=== PATIENT | male | born 1955 | race Caucasian/White ===

== ENCOUNTER 2017-03-20 02:12 | Inpatient (IN) | payer OTHER ==
[~2017-03-20] VITALS: Ht 167.6 cm; Wt 119.7 kg
[2017-03-20] VITALS (14 sets, daily range): BP systolic 107–172; BP diastolic 48–83
[~2017-03-20 02:12] MED LIST: ALBU8.5H IH; ASPI-1093 PO; ATOR40TA28 PO; AUD NEB; BECL8.7A5 IH; CARV6 PO; CLOP75 PO; DOXY100C PO; FLUT16H NASAL; FURO40 PO; INS7030 SQ; IPRA3AMP4 NEB; IPRNEB IH; LISI-662 PO; MOME13HF IH; POTA20TA82 PO
[2017-03-20] MEDS ORDERED: TICA90TA PO (02:16)
[2017-03-20] MEDS ORDERED: MOME13HF2 IH (02:16)
[2017-03-20 02:22] LABS: GLUCOSE,POINT OF CARE 296 MG/DL (70-110)
[2017-03-20 02:44] LABS: EOSINOPHILS % (AUTO) 3.3 % (1.0-6.0); HEMOGLOBIN 14.7 g/dL (13.5-17.5); LYMPHOCYTES # (AUTO) 2.3 K/uL (1.0-4.8); LYMPHOCYTES % (AUTO) 25.1 % (22.0-44.0); MEAN CORPUSCULAR HEMOGLOBIN 30.6 pg (26.0-34.0); MEAN CORPUSCULAR HGB CONC 32.7 G/dL (31.0-37.0); MEAN CORPUSCULAR VOLUME 94 fL (80-100); MONOCYTES # (AUTO) 0.7 K/uL (0.1-1.0); MONOCYTES % (AUTO) 7.3 % (2.0-9.0); NEUTROPHILS # (AUTO) 5.9 K/uL (1.8-7.7); NEUTROPHILS % (AUTO) 64.3 % (40.0-70.0); PLATELET COUNT (AUTO) 199 K/uL (150-450); RED CELL DISTRIBUTION WIDTH 13.3 % (11.5-14.5); WHITE BLOOD COUNT (AUTO) 9.2 K/uL (4.5-11.0)
[2017-03-20] MEDS ORDERED: ONDANSETRON HCL 4 MG/2 ML VIAL IVP ONE (02:45)
[2017-03-20] MEDS ORDERED: FUROSEMIDE 40 MG/4 ML VIAL IVP ONE (02:45)
[2017-03-20] MEDS ORDERED: MORPHINE SULFATE 2 MG/ML SYRINGE IVP ONE (02:45)
[2017-03-20 02:54] LABS: CALCIUM, TOTAL 9.2 mg/dL (8.8-10.5); CREATININE 1.37 mg/dL (0.60-1.30); POTASSIUM 4.3 mmol/L (3.5-5.1)
[2017-03-20 02:59] LABS: BILIRUBIN,TOTAL 0.5 mg/dL (0.1-1.0); TOTAL PROTEIN, SERUM 6.6 g/dL (6.4-8.2)
[2017-03-20] MEDS ORDERED: NITROGLYCERIN 50 MG/D5% WATER 250 ML IV PRN (03:15)
[2017-03-20] MEDS ORDERED: 0.9% SODIUM CHLORIDE 10 ML SYRINGE IVP PRN (03:15)
[2017-03-20] MEDS ORDERED: ONDANSETRON HCL 4 MG/2 ML VIAL IVP PRN ×2 (03:15→03:30)
[2017-03-20] MEDS ORDERED: ACETAMINOPHEN 325 MG TABLET PO PRN ×2 (03:15→03:30)
[2017-03-20] MEDS ORDERED: HEPARIN SODIUM 25000 UNITS/D5W 250 ML IV ONE (03:15)
[2017-03-20] MEDS ORDERED: HEPARIN SODIUM 25000 UNITS/D5W 250 ML IV PRN (03:17)
[2017-03-20] MEDS ORDERED: IPRATROPIUM BROMIDE 0.5 MG/2.5 ML NEB SOLUTION NEB PRN (03:30)
[2017-03-20] MEDS ORDERED: ZOLPIDEM TARTRATE 5 MG TABLET PO PRN (03:30)
[2017-03-20] MEDS ORDERED: MAGNESIUM SULFATE 4 GM/WATER 100 ML IV PRN (03:30)
[2017-03-20] MEDS ORDERED: MAGNESIUM OXIDE 400 MG TABLET PO PRN (03:30)
[2017-03-20] MEDS ORDERED: POTASSIUM CHLORIDE 20 MEQ ER TABLET PO PRN ×2 (03:30)
[2017-03-20] MEDS ORDERED: BISACODYL 10 MG RECTAL RECTAL SUPPOSITORY PR PRN (03:30)
[2017-03-20] MEDS ORDERED: HEPARIN SODIUM,PORCINE 5,000 UNITS/ML VIAL IVP PRN ×2 (03:30)
[2017-03-20] MEDS ORDERED: MAGNESIUM SULFATE 2 GM in DEXTROSE 5%-WATER 50 ML IV PRN (03:30)
[2017-03-20] MEDS ORDERED: OxyCODONE HCL/ACETAMINOPHEN 5-325 MG TABLET PO PRN (03:30)
[2017-03-20] MEDS ORDERED: HEPARIN SODIUM,PORCINE 5,000 UNITS/ML VIAL IVP ONE ×3 (03:30→13:15)
[2017-03-20] MEDS ORDERED: POTASSIUM CHL 10 MEQ/WATER 50 ML IV PRN (03:30)
[2017-03-20] MEDS ORDERED: ALBUTEROL SULFATE 2.5 MG/0.5 ML NEB SOLUTION NEB PRN (03:30)
[2017-03-20] MEDS ORDERED: MAGNESIUM HYDROXIDE SUSPENSION 30 ML UDCUP PO PRN (03:30)
[2017-03-20] MEDS ORDERED: HEPARIN SODIUM 25000 UNITS/D5W 250 ML IV SCH (03:45)
[2017-03-20 03:52] LABS: PROTHROMBIN TIME 10.9 SEC (9.4-11.6)
[2017-03-20 04:05] LABS: CREATINE KINASE MB 14.2 ng/mL (0-5)
[2017-03-20] MEDS ORDERED: SODIUM CHLORIDE 0.9% 250 ML IV ONE (04:10)
[2017-03-20 04:57] LABS: GLUCOSE,POINT OF CARE 280 MG/DL (70-110)
[2017-03-20] MEDS ORDERED: DEXTROSE 50%-WATER 25 GM/50 ML SYRINGE IVP PRN ×2 (05:00→16:45)
[2017-03-20] MEDS: NITROGLYCERIN 2% (1 GM=INCH) PACKET TP SCH ×3 (05:17→17:43)
[2017-03-20] MEDS: INSULIN ASPART 100 UNITS/ML SQ PRN ×3 (05:40→21:29)
[2017-03-20 08:17] LABS: GLUCOSE,POINT OF CARE 211 MG/DL (70-110)
[2017-03-20] MEDS: INSULIN HUMAN NPH-REGULAR 70/30 100 UNITS/ML SQ SCH ×2 (08:18→21:29)
[2017-03-20] MEDS ORDERED: PANTOPRAZOLE SODIUM 40 MG/VIAL IVP SCH (09:00)
[2017-03-20] MEDS: CARVEDILOL 6.25 MG TABLET PO SCH ×2 (09:15→21:27)
[2017-03-20] MEDS: BECLOMETHASONE DIPR 80 MCG/PUFF 8.7 GM INHALER IH SCH ×2 (09:15→21:58)
[2017-03-20] MEDS: LISINOPRIL 20 MG TABLET PO SCH (09:16)
[2017-03-20] MEDS: ATORVASTATIN CALCIUM 40 MG TABLET PO SCH (10:30)
[2017-03-20] MEDS ORDERED: FUROSEMIDE 40 MG TABLET PO SCH (11:00)
[2017-03-20] MEDS ORDERED: SODIUM BICARBONATE 150 MEQ in DEXTROSE 5%-WATER 850 ML IV ONE (11:00)
[2017-03-20] MEDS ORDERED: SODIUM BICARBONATE 50 MEQ/50 ML VIAL ONE (11:59)
[2017-03-20] MEDS ORDERED: LIDOCAINE HCL/PF 1% 30 ML VIAL ONE (11:59)
[2017-03-20] MEDS ORDERED: IOHEXOL 300 MG/ML 150 ML VIAL ONE (11:59)
[2017-03-20] MEDS ORDERED: HEPARIN SODIUM 1000 UNITS/NS 1,000 ML ONE (11:59)
[2017-03-20 12:15] LABS: INR 1.1 (0.9-1.1); PROTHROMBIN TIME 11.2 SEC (9.4-11.6)
[2017-03-20] MEDS ORDERED: IOHEXOL 300 MG/ML 50 ML VIAL ONE (12:33)
[2017-03-20] MEDS ORDERED: FentaNYL CITRATE-PF 100 MCG/2 ML VIAL ONE (12:33)
[2017-03-20] MEDS ORDERED: NITROGLYCERIN 50 MG/D5% WATER 250 ML ONE (12:33)
[2017-03-20] MEDS ORDERED: MIDAZOLAM HCL 2 MG/2 ML VIAL ONE (12:33)
[2017-03-20] MEDS ORDERED: VERAPAMIL HCL 2.5 MG/ML 2 ML VIAL ONE (12:33)
[2017-03-20] MEDS ORDERED: HEPARIN SODIUM 1000 UNITS/NS 1,000 ML IARTER ONE (12:41)
[2017-03-20] MEDS ORDERED: IOHEXOL 300 MG/ML 150 ML VIAL IARTER ONE (12:45)
[2017-03-20] MEDS ORDERED: LIDOCAINE 1% 30 ML/SOD BICARB 8.4% 4 ML SQ ONE (12:45)
[2017-03-20] MEDS ORDERED: IOHEXOL 300 MG/ML 100 ML VIAL ONE (12:58)
[2017-03-20] MEDS ORDERED: NITROGLYCERIN/D5W 50 MG/250 ML IV BOTTLE ICOR ONE (13:15)
[2017-03-20] MEDS ORDERED: IOHEXOL 300 MG/ML 50 ML VIAL IARTER ONE (13:15)
[2017-03-20] MEDS ORDERED: IOHEXOL 300 MG/ML 100 ML VIAL IARTER ONE (13:15)
[2017-03-20] MEDS ORDERED: VERAPAMIL HCL 2.5 MG/ML 2 ML VIAL ICOR ONE (13:15)
[2017-03-20] MEDS ORDERED: TICAGRELOR 90 MG TABLET ONE (13:22)
[2017-03-20] MEDS ORDERED: ASPIRIN 81 MG CHEWABLE TABLET ONE (13:22)
[2017-03-20] MEDS ORDERED: TICAGRELOR 90 MG TABLET PO ONE (14:00)
[2017-03-20] MEDS ORDERED: ASPIRIN 81 MG CHEWABLE TABLET PO ONE (14:00)
[2017-03-20] MEDS ORDERED: INSULIN ASPART 100 UNITS/ML SQ PRN (16:45)
[2017-03-20] MEDS: OMEPRAZOLE 20 MG CAPSULE PO SCH (18:38)
[2017-03-20] MEDS ORDERED: TICAGRELOR 90 MG TABLET PO SCH ×2 (21:00)
[2017-03-21] VITALS (11 sets, daily range): BP systolic 105–161; BP diastolic 52–82
[2017-03-21] MEDS: NITROGLYCERIN 2% (1 GM=INCH) PACKET TP SCH ×5 (00:30→23:54)
[2017-03-21 05:14] LABS: BASOPHILS # (AUTO) 0.02 K/uL (0.00-0.20); BASOPHILS % (AUTO) 0.2 % (0.0-2.0); EOSINOPHILS # (AUTO) 0.33 K/uL (0.00-0.70); EOSINOPHILS % (AUTO) 3.12 % (1.0-6.0); HEMATOCRIT 38.8 % (41-53); HEMOGLOBIN 12.8 g/dL (13.5-17.5); LYMPHOCYTES # (AUTO) 2.2 K/uL (1.0-4.8); LYMPHOCYTES % (AUTO) 20.6 % (22.0-44.0); MEAN CORPUSCULAR HEMOGLOBIN 31.3 pg (26.0-34.0); MEAN CORPUSCULAR VOLUME 95 fL (80-100); MONOCYTES # (AUTO) 0.9 K/uL (0.1-1.0); MONOCYTES % (AUTO) 8.5 % (2.0-9.0); NEUTROPHILS # (AUTO) 7.1 K/uL (1.8-7.7); NEUTROPHILS % (AUTO) 67.5 % (40.0-70.0); PLATELET COUNT (AUTO) 194 K/uL (150-450); RED CELL DISTRIBUTION WIDTH 13.2 % (11.5-14.5); WHITE BLOOD COUNT (AUTO) 10.5 K/uL (4.5-11.0)
[2017-03-21 05:48] LABS: ALBUMIN 2.6 g/dL (3.4-5.0); BILIRUBIN,TOTAL 0.8 mg/dL (0.1-1.0); CALCIUM, TOTAL 8.6 mg/dL (8.8-10.5); CREATINE KINASE MB 9.6 ng/mL (0-5); CREATININE 1.32 mg/dL (0.60-1.30); MAGNESIUM 1.7 mg/dL (1.80-2.40); POTASSIUM 3.8 mmol/L (3.5-5.1); TOTAL PROTEIN, SERUM 5.7 g/dL (6.4-8.2)
[2017-03-21] MEDS ORDERED: PRASUGREL HCL 10 MG TABLET PO SCH (09:00)
[2017-03-21] MEDS: LISINOPRIL 20 MG TABLET PO SCH (09:27)
[2017-03-21 09:28] LABS: GLUCOSE COMMENT 1 Received Meds; GLUCOSE,POINT OF CARE 199 MG/DL (70-110)
[2017-03-21 09:28] LABS: GLUCOSE,POINT OF CARE 96 MG/DL (70-110)
[2017-03-21 09:28] LABS: GLUCOSE,POINT OF CARE 114 MG/DL (70-110)
[2017-03-21 09:28] LABS: GLUCOSE,POINT OF CARE 149 MG/DL (70-110)
[2017-03-21] MEDS: ASPIRIN 81 MG EC TABLET PO SCH (09:32)
[2017-03-21] MEDS: BECLOMETHASONE DIPR 80 MCG/PUFF 8.7 GM INHALER IH SCH ×2 (09:32→21:28)
[2017-03-21] MEDS: TICAGRELOR 90 MG TABLET PO SCH ×2 (09:41→21:27)
[2017-03-21] MEDS: ATORVASTATIN CALCIUM 40 MG TABLET PO SCH (09:43)
[2017-03-21] MEDS: OMEPRAZOLE 20 MG CAPSULE PO SCH (09:43)
[2017-03-21] MEDS: INSULIN HUMAN NPH-REGULAR 70/30 100 UNITS/ML SQ SCH ×2 (10:05→21:32)
[2017-03-21] MEDS: INSULIN ASPART 100 UNITS/ML SQ PRN ×3 (12:06→21:34)
[2017-03-21 12:07] LABS: GLUCOSE,POINT OF CARE 196 MG/DL (70-110)
[2017-03-21] MEDS: CARVEDILOL 12.5 MG TABLET PO SCH (21:27)
[2017-03-21] MEDS: OxyCODONE HCL/ACETAMINOPHEN 5-325 MG TABLET PO PRN (21:30)
[2017-03-22] MEDS: OxyCODONE HCL/ACETAMINOPHEN 5-325 MG TABLET PO PRN (00:55)
[2017-03-22 04:20] VITALS: BP 133/70
[2017-03-22] MEDS: NITROGLYCERIN 2% (1 GM=INCH) PACKET TP SCH ×3 (05:53→18:00)
[2017-03-22] MEDS: INSULIN ASPART 100 UNITS/ML SQ PRN ×3 (05:55→18:33)
[2017-03-22 06:30] LABS: BASOPHILS % (AUTO) 0.1 % (0.0-2.0); HEMOGLOBIN 12.7 g/dL (13.5-17.5); LYMPHOCYTES # (AUTO) 2.3 K/uL (1.0-4.8); LYMPHOCYTES % (AUTO) 26.2 % (22.0-44.0); MEAN CORPUSCULAR HEMOGLOBIN 30.8 pg (26.0-34.0); MEAN CORPUSCULAR HGB CONC 32.4 G/dL (31.0-37.0); MEAN CORPUSCULAR VOLUME 95 fL (80-100); MONOCYTES # (AUTO) 0.9 K/uL (0.1-1.0); MONOCYTES % (AUTO) 10.9 % (2.0-9.0); NEUTROPHILS % (AUTO) 57.8 % (40.0-70.0); PLATELET COUNT (AUTO) 190 K/uL (150-450); RED BLOOD CELL COUNT(AUTO) 4.11 MIL/uL (4.50-5.90); RED CELL DISTRIBUTION WIDTH 13.1 % (11.5-14.5); WHITE BLOOD COUNT (AUTO) 8.7 K/uL (4.5-11.0)
[2017-03-22 07:11] LABS: ALBUMIN 2.6 g/dL (3.4-5.0); BILIRUBIN,TOTAL 0.7 mg/dL (0.1-1.0); CALCIUM, TOTAL 8.6 mg/dL (8.8-10.5); CREATININE 1.37 mg/dL (0.60-1.30); MAGNESIUM 1.9 mg/dL (1.80-2.40); POTASSIUM 3.7 mmol/L (3.5-5.1)
[2017-03-22 07:22] VITALS: BP 145/67
[2017-03-22] MEDS: ASPIRIN 81 MG EC TABLET PO SCH (08:22)
[2017-03-22] MEDS: OMEPRAZOLE 20 MG CAPSULE PO SCH (08:22)
[2017-03-22] MEDS: LISINOPRIL 20 MG TABLET PO SCH (08:23)
[2017-03-22] MEDS: ATORVASTATIN CALCIUM 40 MG TABLET PO SCH (08:23)
[2017-03-22] MEDS: CARVEDILOL 12.5 MG TABLET PO SCH (08:23)
[2017-03-22] MEDS: BECLOMETHASONE DIPR 80 MCG/PUFF 8.7 GM INHALER IH SCH (08:24)
[2017-03-22] MEDS: INSULIN HUMAN NPH-REGULAR 70/30 100 UNITS/ML SQ SCH (08:31)
[2017-03-22] MEDS ORDERED: PRASUGREL HCL 10 MG TABLET PO SCH (09:00)
[2017-03-22 11:50] VITALS: BP 136/72
[2017-03-22 15:43] VITALS: BP 132/63
[2017-03-22 19:21] VITALS: BP 141/71
[2017-03-26 15:13] LABS: GLUCOSE,POINT OF CARE 237 MG/DL (70-110)
[2017-03-27 11:57] LABS: GLUCOSE COMMENT 1 Received Meds; GLUCOSE,POINT OF CARE 145 MG/DL (70-110)
== END 2017-03-22 20:35 | disposition home or self-care (01) | DRG 175 ==
LOC: EMS 02:13 → ICU 09:58 → UNDOADMIN 10:07 → ICU 10:07 → 5S 03-21 12:20
PROVIDERS: ADMIT Internal Medicine; ATTEND Internal Medicine
PROC: 027034Z Dilation of Coronary Artery, One Artery with Drug-eluting Intraluminal Device, Percutaneous Approach (ICD-10-PCS; principal; 2017-03-20)
PROC: 4A023N7 Measurement of Cardiac Sampling and Pressure, Left Heart, Percutaneous Approach (ICD-10-PCS; 2017-03-20)
PROC: B2151ZZ Fluoroscopy of Left Heart using Low Osmolar Contrast (ICD-10-PCS; 2017-03-20)
PROC: B2101ZZ Fluoroscopy of Single Coronary Artery using Low Osmolar Contrast (ICD-10-PCS; 2017-03-20)
PROC: B41J1ZZ Fluoroscopy of Other Lower Arteries using Low Osmolar Contrast (ICD-10-PCS; 2017-03-20)
DX: T82.855A Stenosis of coronary artery stent, initial encounter (principal); I21.4 Non-ST elevation (NSTEMI) myocardial infarction; I50.21 Acute systolic (congestive) heart failure; N17.9 Acute kidney failure, unspecified; N18.3 Chronic kidney disease, stage 3 (moderate); I13.0 Hypertensive heart and chronic kidney disease with heart failure and stage 1 through stage 4 chronic kidney disease, or unspecified chronic kidney disease; I50.32 Chronic diastolic (congestive) heart failure; E11.22 Type 2 diabetes mellitus with diabetic chronic kidney disease; E11.65 Type 2 diabetes mellitus with hyperglycemia; E66.01 Morbid (severe) obesity due to excess calories; K21.9 Gastro-esophageal reflux disease without esophagitis; I25.10 Atherosclerotic heart disease of native coronary artery without angina pectoris; J44.9 Chronic obstructive pulmonary disease, unspecified; H54.41 Blindness, right eye, normal vision left eye; E78.5 Hyperlipidemia, unspecified; Y83.8 Other surgical procedures as the cause of abnormal reaction of the patient, or of later complication, without mention of misadventure at the time of the procedure; X58.XXXA Exposure to other specified factors, initial encounter; R04.0 Epistaxis; Z53.29 Procedure and treatment not carried out because of patient's decision for other reasons; Z79.82 Long term (current) use of aspirin; Z79.4 Long term (current) use of insulin; Y93.89 Activity, other specified; Y99.8 Other external cause status; Z68.41 Body mass index [BMI] 40.0-44.9, adult; I25.2 Old myocardial infarction; Y92.89 Other specified places as the place of occurrence of the external cause; Z79.899 Other long term (current) drug therapy; Z79.01 Long term (current) use of anticoagulants
CPT/HCPCS: 82962; 83735; 87081; 92920; 92928; 93005; 93306; 96365; 96366; 96368; 96375; 99291; C9113; J1644; J1815; J1940; J2250; J2270; J2405; J3010; J3490; J3535; J7050; J7060; Q9967

== ENCOUNTER 2017-11-11 09:57 | Emergency (ER) | payer OTHER ==
[~2017-11-11] VITALS: Ht 170.2 cm; Wt 172.7 kg
[~2017-11-11 09:57] MED LIST changes: -ALBU8.5H IH; +ALBU8.5H8 IH; +AMLO-511 PO; -ASPI-1093 PO; +ASPI-1188 PO; -AUD NEB; -BECL8.7A5 IH; +CARV12 PO; -CARV6 PO; -CLOP75 PO; -DOXY100C PO; -FLUT16H NASAL; -IPRA3AMP4 NEB; -IPRNEB IH; +ISOS60TA4 PO; -POTA20TA82 PO; +RANO500T3 PO; +SLOWK8 PO; +TICA90TA PO
[2017-11-11 10:17] LABS: GLUCOSE,POINT OF CARE 207 MG/DL (70-110)
[2017-11-11] MEDS ORDERED: DEXT118S5 PO (10:24)
[2017-11-11] MEDS ORDERED: MOME13HF IH (10:24)
[2017-11-11] MEDS ORDERED: FLUT16H NASAL (10:24)
[2017-11-11 11:22] LABS: INFLUENZA TYPE A POSITIVE FOR TYPE A (NEGATIVE); INFLUENZA TYPE B NEGATIVE FOR TYPE B (NEGATIVE)
[2017-11-11] MEDS ORDERED: ONDANSETRON HCL 4 MG/2 ML VIAL IVP ONE (12:15)
[2017-11-11] MEDS ORDERED: KETOROLAC TROMETHAMINE 30 MG/ML VIAL IVP ONE (12:15)
[2017-11-11] MEDS ORDERED: SODIUM CHLORIDE 0.9% 1,000 ML IV ONE (12:15)
[2017-11-11] MEDS ORDERED: OSELTAMIVIR PHOSPHATE 75 MG CAPSULE PO ONE (12:15)
[2017-11-11] MEDS ORDERED: CARV25 PO (12:21)
[2017-11-11 13:49] VITALS: BP 107/79
== END 2017-11-11 14:28 | disposition home or self-care (01) ==
LOC: EMS 09:58
DX: J11.1 Influenza due to unidentified influenza virus with other respiratory manifestations (principal); R19.7 Diarrhea, unspecified; R11.0 Nausea; I11.0 Hypertensive heart disease with heart failure; I50.9 Heart failure, unspecified; K21.9 Gastro-esophageal reflux disease without esophagitis; E78.00 Pure hypercholesterolemia, unspecified; I25.2 Old myocardial infarction; Z79.4 Long term (current) use of insulin; Z79.82 Long term (current) use of aspirin
CPT/HCPCS: 82962; 87804; 96361; 96374; 96375; 99285; J1885; J2405; J7030

== ENCOUNTER 2017-11-16 17:36 | Emergency (ER) | payer OTHER ==
[~2017-11-16] VITALS: Ht 167.6 cm; Wt 120.0 kg
[~2017-11-16 17:36] MED LIST changes: -CARV12 PO; +CARV25 PO; +DEXT118S5 PO; +FLUT16H NASAL
[2017-11-16] MEDS ORDERED: ALBUTEROL SULFATE 2.5 MG/0.5 ML NEB SOLUTION NEB PRN (18:15)
[2017-11-16] MEDS ORDERED: IPRATROPIUM BROMIDE 0.5 MG/2.5 ML NEB SOLUTION NEB PRN (18:15)
[2017-11-16 18:54] LABS: BASOPHILS % (AUTO) 0.2 % (0.0-2.0); EOSINOPHILS % (AUTO) 0.9 % (1.0-6.0); HEMATOCRIT 37.8 % (41-53); HEMOGLOBIN 12.9 g/dL (13.5-17.5); LYMPHOCYTES % (AUTO) 19.5 % (22.0-44.0); MEAN CORPUSCULAR HEMOGLOBIN 31.4 pg (26.0-34.0); MEAN CORPUSCULAR HGB CONC 34.1 G/dL (31.0-37.0); MEAN CORPUSCULAR VOLUME 92 fL (80-100); MONOCYTES # (AUTO) 0.8 K/uL (0.1-1.0); MONOCYTES % (AUTO) 8.3 % (2.0-9.0); NEUTROPHILS # (AUTO) 7.2 K/uL (1.8-7.7); NEUTROPHILS % (AUTO) 71.1 % (40.0-70.0); PLATELET COUNT (AUTO) 209 K/uL (150-450); RED BLOOD CELL COUNT(AUTO) 4.11 MIL/uL (4.50-5.90); RED CELL DISTRIBUTION WIDTH 13.2 % (11.5-14.5)
[2017-11-16] MEDS ORDERED: FUROSEMIDE 40 MG/4 ML VIAL IVP ONE (19:15)
[2017-11-16] MEDS ORDERED: BENZONATATE 100 MG CAPSULE PO ONE (19:45)
[2017-11-16] MEDS ORDERED: PROMETHAZINE HCL/CODEINE 6.25-10MG/5ML SYRUP UDCUP PO ONE (19:45)
[2017-11-16 19:52] LABS: CALCIUM, TOTAL 8.6 mg/dL (8.8-10.5); CREATININE 1.3 mg/dL (0.60-1.30); POTASSIUM 4.3 mmol/L (3.5-5.1)
[2017-11-16 19:57] LABS: ALBUMIN 2.7 g/dL (3.4-5.0); TOTAL PROTEIN, SERUM 6.4 g/dL (6.4-8.2)
[2017-11-16] MEDS ORDERED: MethylPREDNISolone SOD SUCC 125 MG/2 ML VIAL IVP ONE (21:30)
[2017-11-16 22:35] VITALS: BP 151/70
[2017-11-16] MEDS ORDERED: LEVOFLOXACIN 500 MG TABLET PO ONE (22:45)
== END 2017-11-16 23:13 | disposition home or self-care (01) ==
LOC: EMS 17:41
DX: J44.1 Chronic obstructive pulmonary disease with (acute) exacerbation (principal); I11.0 Hypertensive heart disease with heart failure; I50.9 Heart failure, unspecified; E11.9 Type 2 diabetes mellitus without complications; J45.909 Unspecified asthma, uncomplicated; K21.9 Gastro-esophageal reflux disease without esophagitis; E78.00 Pure hypercholesterolemia, unspecified; I25.2 Old myocardial infarction; I25.10 Atherosclerotic heart disease of native coronary artery without angina pectoris; E66.9 Obesity, unspecified; Z79.82 Long term (current) use of aspirin; Z79.4 Long term (current) use of insulin; Z68.41 Body mass index [BMI] 40.0-44.9, adult
CPT/HCPCS: 36415; 71045; 80053; 83880; 84484; 85025; 93005; 94640; 96374; 96375; 99285; J1940; J2930; J7613

== ENCOUNTER 2017-11-27 18:30 | Emergency (ER) | payer OTHER ==
[~2017-11-27] VITALS: Ht 167.6 cm; Wt 114.1 kg
[2017-11-27] MEDS ORDERED: MOME13HF IH (18:40)
[2017-11-27] MEDS ORDERED: IPRNEB IH (18:40)
[2017-11-27 18:58] LABS: GLUCOSE,POINT OF CARE 164 MG/DL (70-110)
[2017-11-27] MEDS ORDERED: ALBUTEROL SULFATE 2.5 MG/0.5 ML NEB SOLUTION NEB ONE (19:12)
[2017-11-27] MEDS ORDERED: 0.9% SODIUM CHLORIDE 5 ML NEB SOLUTION NEB ONE (19:27)
[2017-11-27 20:25] LABS: CALCIUM, TOTAL 8.9 mg/dL (8.8-10.5); CREATININE 1.22 mg/dL (0.60-1.30); POTASSIUM 3.8 mmol/L (3.5-5.1)
[2017-11-27 20:30] LABS: BASOPHILS # (AUTO) 0.04 K/uL (0.00-0.20); BASOPHILS % (AUTO) 0.3 % (0.0-2.0); EOSINOPHILS # (AUTO) 0.21 K/uL (0.00-0.70); EOSINOPHILS % (AUTO) 1.61 % (1.0-6.0); HEMATOCRIT 41.6 % (41-53); HEMOGLOBIN 13.9 g/dL (13.5-17.5); LYMPHOCYTES # (AUTO) 2.9 K/uL (1.0-4.8); LYMPHOCYTES % (AUTO) 21.4 % (22.0-44.0); MEAN CORPUSCULAR HEMOGLOBIN 31.4 pg (26.0-34.0); MEAN CORPUSCULAR HGB CONC 33.4 G/dL (31.0-37.0); MEAN CORPUSCULAR VOLUME 94 fL (80-100); MONOCYTES # (AUTO) 1.1 K/uL (0.1-1.0); MONOCYTES % (AUTO) 7.9 % (2.0-9.0); NEUTROPHILS # (AUTO) 9.2 K/uL (1.8-7.7); NEUTROPHILS % (AUTO) 68.9 % (40.0-70.0); PLATELET COUNT (AUTO) 289 K/uL (150-450); RED BLOOD CELL COUNT(AUTO) 4.43 MIL/uL (4.50-5.90); RED CELL DISTRIBUTION WIDTH 13.2 % (11.5-14.5)
[2017-11-27] MEDS ORDERED: GuaiFENesin/CODEINE [SUGAR FREE] 200-20MG/10 ML SYRUP UDCUP PO ONE (20:30)
[2017-11-27 20:31] LABS: ALBUMIN 3.2 g/dL (3.4-5.0); BILIRUBIN,TOTAL 0.5 mg/dL (0.1-1.0); TOTAL PROTEIN, SERUM 7.1 g/dL (6.4-8.2)
[2017-11-27] MEDS ORDERED: PredniSONE 5 MG/5 ML SOLUTION UDCUP PO ONE (20:45)
[2017-11-27] MEDS ORDERED: MAALOX/LIDOCAINE/NYSTATIN SUSP 5 ML ORAL.SYG PO ONE (20:45)
[2017-11-27 20:50] VITALS: BP 134/78
== END 2017-11-27 21:21 | disposition home or self-care (01) ==
LOC: EMS 18:32
DX: J02.9 Acute pharyngitis, unspecified (principal); J11.1 Influenza due to unidentified influenza virus with other respiratory manifestations; I11.0 Hypertensive heart disease with heart failure; I50.9 Heart failure, unspecified; E11.9 Type 2 diabetes mellitus without complications; K21.9 Gastro-esophageal reflux disease without esophagitis; E78.00 Pure hypercholesterolemia, unspecified; I25.2 Old myocardial infarction; Z79.82 Long term (current) use of aspirin; Z79.4 Long term (current) use of insulin
CPT/HCPCS: 36415; 71046; 80053; 82962; 83690; 83880; 84484; 85025; 87040; 93005; 94640; 99285; J7512; J7613

== ENCOUNTER 2018-03-16 14:08 | Inpatient (IN) | payer OTHER ==
[~2018-03-16] VITALS: Ht 162.6 cm; Wt 117.0 kg
[~2018-03-16 14:08] MED LIST changes: -DEXT118S5 PO; -FLUT16H NASAL; +IPRNEB IH
[2018-03-16 14:28] LABS: GLUCOSE,POINT OF CARE 214 MG/DL (70-110)
[2018-03-16] MEDS ORDERED: 0.9% SODIUM CHLORIDE 10 ML SYRINGE IVP PRN ×2 (14:45→19:30)
[2018-03-16 15:25] LABS: BASOPHILS % (AUTO) 0.2 % (0.0-2.0); EOSINOPHILS % (AUTO) 0.1 % (1.0-6.0); HEMATOCRIT 37.4 % (41-53); LYMPHOCYTES # (AUTO) 1.9 K/uL (1.0-4.8); LYMPHOCYTES % (AUTO) 8.8 % (22.0-44.0); MEAN CORPUSCULAR HEMOGLOBIN 31.5 pg (26.0-34.0); MEAN CORPUSCULAR HGB CONC 34.7 G/dL (31.0-37.0); MEAN CORPUSCULAR VOLUME 91 fL (80-100); MONOCYTES # (AUTO) 1.8 K/uL (0.1-1.0); MONOCYTES % (AUTO) 8.3 % (2.0-9.0); NEUTROPHILS # (AUTO) 18.1 K/uL (1.8-7.7); NEUTROPHILS % (AUTO) 82.6 % (40.0-70.0); PLATELET COUNT (AUTO) 208 K/uL (150-450); RED BLOOD CELL COUNT(AUTO) 4.11 MIL/uL (4.50-5.90)
[2018-03-16 15:35] LABS: ANION GAP 7 mmol/L (8-16); CALCIUM, TOTAL 9.2 mg/dL (8.8-10.5); CARBON DIOXIDE 28 mmol/L (22-29); CHLORIDE 100 mmol/L (98-107); CREATININE 1.63 mg/dL (0.60-1.30); GLOMERULAR FILTR. RATE CALC 43 mL/min (>60); GLUCOSE,RANDOM 237 mg/dL (70-110); POTASSIUM 4.1 mmol/L (3.5-5.1); PROTHROMBIN TIME 10.9 SEC (9.4-11.6); SODIUM SERUM 135 mmol/L (136-145); UREA NITROGEN, BLOOD 22 mg/dL (7-18)
[2018-03-16 15:42] LABS: ALANINE AMINOTRANSFERASE 12 U/L (12-78); ALBUMIN 2.8 g/dL (3.4-5.0); ALKALINE PHOSPHATASE 73 U/L (46-116); ASPARTATE AMINOTRANSFERASE 14 U/L (15-37); BILIRUBIN,TOTAL 2.1 mg/dL (0.1-1.0); CREATINE KINASE, TOTAL 48 U/L (39-308); TOTAL PROTEIN, SERUM 7.1 g/dL (6.4-8.2)
[2018-03-16 15:43] LABS: LACTIC ACID 1.6 mmol/L (0.4-2.0)
[2018-03-16] MEDS ORDERED: VANCOMYCIN HCL 1 GM/D5% WATER 200 ML IV ONE (15:45)
[2018-03-16] MEDS ORDERED: PIPERACILLIN/TAZO 3.375 GM/D5W 50 ML IV ONE (15:45)
[2018-03-16] MEDS ORDERED: HYDROmorphone 2 MG/ML SYRINGE IVP ONE ×2 (15:45→17:15)
[2018-03-16] MEDS ORDERED: ONDANSETRON HCL 4 MG/2 ML VIAL IVP ONE (15:45)
[2018-03-16 15:48] LABS: B-TYPE NATRIURETIC PEPTIDE 806 pg/mL (0-100)
[2018-03-16] MEDS ORDERED: ACETAMINOPHEN 500 MG TABLET PO ONE (16:30)
[2018-03-16] MEDS ORDERED: DEXTROSE 50%-WATER 25 GM/50 ML SYRINGE IVP PRN (19:15)
[2018-03-16] MEDS: CefTRIAXone SODIUM 1 GM in DEXTROSE 5%-WATER 10 ML IV SCH (19:29)
[2018-03-16] MEDS ORDERED: ONDANSETRON HCL 4 MG/2 ML VIAL IVP PRN (19:30)
[2018-03-16] MEDS ORDERED: BISACODYL 10 MG RECTAL RECTAL SUPPOSITORY PR PRN (19:30)
[2018-03-16] MEDS ORDERED: MAGNESIUM HYDROXIDE SUSPENSION 30 ML UDCUP PO PRN (19:30)
[2018-03-16] MEDS ORDERED: [UNRECOGNIZED DRUG - OTHER] IH SCH (21:00)
[2018-03-16] MEDS ORDERED: VANCOMYCIN HCL 500 MG in DEXTROSE 5%-WATER 100 ML IV ONE (21:00)
[2018-03-16 21:09] VITALS: BP 148/65
[2018-03-16] MEDS ORDERED: SODIUM CHLORIDE 0.9% 100 ML ONE (21:12)
[2018-03-16] MEDS: RANOLAZINE 500 MG SR TABLET PO SCH (21:19)
[2018-03-16] MEDS: CARVEDILOL 25 MG TABLET PO SCH (21:20)
[2018-03-16] MEDS: TICAGRELOR 90 MG TABLET PO SCH (21:20)
[2018-03-16] MEDS: HEPARIN SODIUM,PORCINE 5,000 UNITS/ML VIAL SQ SCH (21:20)
[2018-03-16] MEDS: DOCUSATE SODIUM 100 MG CAPSULE PO SCH (21:20)
[2018-03-16] MEDS: INSULIN LISPRO 100 UNITS/ML SQ PRN (21:28)
[2018-03-16] MEDS: MORPHINE SULFATE 4 MG/ML SYRINGE IVP PRN (22:06)
[2018-03-16] MEDS: IPRATROPIUM BROMIDE 0.5 MG/2.5 ML NEB SOLUTION NEB SCH (22:12)
[2018-03-16 23:42] LABS: GLUCOMETER DEV NAME(LOC) 5S 1M; GLUCOSE,POINT OF CARE 272 MG/DL (70-110)
[2018-03-17] VITALS (7 sets, daily range): BP systolic 106–154; BP diastolic 29–72
[2018-03-17] MEDS: ALBUTEROL SULFATE HFA 90 MCG/PUFF 8 GM INHALER IH SCH ×4 (00:18→17:55)
[2018-03-17] MEDS: IPRATROPIUM BROMIDE 0.5 MG/2.5 ML NEB SOLUTION NEB SCH ×4 (02:34→19:44)
[2018-03-17] MEDS: MORPHINE SULFATE 4 MG/ML SYRINGE IVP PRN ×3 (04:58→20:38)
[2018-03-17] MEDS: INSULIN LISPRO 100 UNITS/ML SQ PRN ×4 (06:03→17:54)
[2018-03-17 06:20] LABS: BASOPHILS % (AUTO) 0.1 % (0.0-2.0); EOSINOPHILS % (AUTO) 1.2 % (1.0-6.0); HEMATOCRIT 34.1 % (41-53); HEMOGLOBIN 11.7 g/dL (13.5-17.5); LYMPHOCYTES # (AUTO) 1.8 K/uL (1.0-4.8); LYMPHOCYTES % (AUTO) 10.7 % (22.0-44.0); MEAN CORPUSCULAR HEMOGLOBIN 31.8 pg (26.0-34.0); MEAN CORPUSCULAR HGB CONC 34.4 G/dL (31.0-37.0); MEAN CORPUSCULAR VOLUME 92 fL (80-100); MONOCYTES # (AUTO) 1.9 K/uL (0.1-1.0); MONOCYTES % (AUTO) 10.9 % (2.0-9.0); NEUTROPHILS # (AUTO) 13.2 K/uL (1.8-7.7); NEUTROPHILS % (AUTO) 77.1 % (40.0-70.0); PLATELET COUNT (AUTO) 184 K/uL (150-450); RED BLOOD CELL COUNT(AUTO) 3.69 MIL/uL (4.50-5.90)
[2018-03-17 06:57] LABS: ALBUMIN 2.2 g/dL (3.4-5.0); BILIRUBIN,TOTAL 1.4 mg/dL (0.1-1.0); CALCIUM, TOTAL 8.2 mg/dL (8.8-10.5); CREATININE 1.95 mg/dL (0.60-1.30); MAGNESIUM 1.6 mg/dL (1.80-2.40); PHOSPHORUS 3.7 mg/dL (2.5-4.9); POTASSIUM 4.1 mmol/L (3.5-5.1); TOTAL PROTEIN, SERUM 6.1 g/dL (6.4-8.2)
[2018-03-17] MEDS: RANOLAZINE 500 MG SR TABLET PO SCH ×2 (08:14→20:37)
[2018-03-17] MEDS: HEPARIN SODIUM,PORCINE 5,000 UNITS/ML VIAL SQ SCH ×2 (08:14→20:37)
[2018-03-17] MEDS: LACTOBACILLUS ACIDOPHILUS/BULGARICUS TABLET PO SCH (08:14)
[2018-03-17] MEDS: TICAGRELOR 90 MG TABLET PO SCH ×2 (08:15→20:37)
[2018-03-17] MEDS: ATORVASTATIN CALCIUM 40 MG TABLET PO SCH (08:15)
[2018-03-17] MEDS: ASPIRIN 81 MG EC TABLET PO SCH (08:15)
[2018-03-17] MEDS: PANTOPRAZOLE SODIUM 40 MG DR TABLET PO SCH (08:15)
[2018-03-17] MEDS: DOCUSATE SODIUM 100 MG CAPSULE PO SCH ×2 (08:15→20:37)
[2018-03-17] MEDS: ACETAMINOPHEN 325 MG TABLET PO PRN (08:15)
[2018-03-17] MEDS: ISOSORBIDE MONONITRATE 60 MG ER TABLET PO SCH (08:15)
[2018-03-17] MEDS: VANCOMYCIN HCL 1 GM/D5% WATER 200 ML IV SCH ×2 (08:44→20:38)
[2018-03-17] MEDS ORDERED: LISINOPRIL 20 MG TABLET PO SCH (09:00)
[2018-03-17] MEDS ORDERED: INSULIN GLARGINE,HUM.REC.ANLOG 100 UNITS/ML SQ SCH (09:45)
[2018-03-17] MEDS: AmLODIPine BESYLATE 5 MG TABLET PO SCH (09:57)
[2018-03-17] MEDS: CARVEDILOL 25 MG TABLET PO SCH ×2 (10:34→21:13)
[2018-03-17] MEDS: CefTRIAXone SODIUM 1 GM in DEXTROSE 5%-WATER 10 ML IV SCH (20:37)
[2018-03-17 22:22] LABS: SODIUM,URINE RANDOM 16 mmol/l (20-110); UREA NITROGEN,URINE RANDOM 688 mg/dL (350-1000)
[2018-03-17 22:33] LABS: APPEARANCE,URINE CLOUDY (CLEAR); BILIRUBIN,URINE NEGATIVE (NEGATIVE); GLUCOSE, URINE (UA) >=1000 mg/dL (NEGATIVE); KETONES,URINE NEGATIVE (NEGATIVE); LEUKOCYTE ESTERASE ,URINE NEGATIVE (NEGATIVE); NITRATE,URINE NEGATIVE (NEGATIVE); OCCULT BLOOD,URINE NEGATIVE (NEGATIVE); PH,URINE 5.5 (5.0-8.0); PROTEIN,URINE SEE CONFIRM (NEGATIVE)
[2018-03-17 22:37] LABS: SULFOSALICYLIC ACID,URINE 2+ (Negative)
[2018-03-17 22:40] LABS: RBC,URINE None Seen /HPF (0-2); WBC,URINE 0-2 /HPF (0-5)
[2018-03-17 22:41] LABS: BACTERIA,URINE Rare /HPF (None Seen); CALCIUM OXALATE CRYSTALS,UR Moderate /LPF (None Seen); SQUAMOUS EPITHELIAL CELL,UR Few /LPF (None Seen); TRANSITIONAL EPI CELLS,URINE Few /LPF (None Seen)
[2018-03-18 00:18] LABS: GLUCOMETER DEV NAME(LOC) 5N 2S; GLUCOSE,POINT OF CARE 260 MG/DL (70-110)
[2018-03-18] MEDS: ALBUTEROL SULFATE HFA 90 MCG/PUFF 8 GM INHALER IH SCH ×5 (00:42→23:47)
[2018-03-18] MEDS: IPRATROPIUM BROMIDE 0.5 MG/2.5 ML NEB SOLUTION NEB SCH ×4 (02:24→20:22)
[2018-03-18 05:22] VITALS: BP 143/70
[2018-03-18 06:31] LABS: BASOPHILS % (AUTO) 0.3 % (0.0-2.0); EOSINOPHILS % (AUTO) 1.6 % (1.0-6.0); HEMATOCRIT 32.7 % (41-53); HEMOGLOBIN 11.3 g/dL (13.5-17.5); LYMPHOCYTES # (AUTO) 2.5 K/uL (1.0-4.8); LYMPHOCYTES % (AUTO) 15.1 % (22.0-44.0); MEAN CORPUSCULAR HEMOGLOBIN 31.8 pg (26.0-34.0); MEAN CORPUSCULAR HGB CONC 34.6 G/dL (31.0-37.0); MEAN CORPUSCULAR VOLUME 92 fL (80-100); MONOCYTES # (AUTO) 1.8 K/uL (0.1-1.0); MONOCYTES % (AUTO) 11.3 % (2.0-9.0); NEUTROPHILS # (AUTO) 11.7 K/uL (1.8-7.7); NEUTROPHILS % (AUTO) 71.7 % (40.0-70.0); PLATELET COUNT (AUTO) 196 K/uL (150-450); RED BLOOD CELL COUNT(AUTO) 3.56 MIL/uL (4.50-5.90); RED CELL DISTRIBUTION WIDTH 13.1 % (11.5-14.5)
[2018-03-18 06:33] LABS: GLUCOMETER DEV NAME(LOC) 5S 2P; GLUCOSE,POINT OF CARE 343 MG/DL (70-110)
[2018-03-18 06:33] LABS: GLUCOMETER DEV NAME(LOC) 5S 2P; GLUCOSE,POINT OF CARE 301 MG/DL (70-110)
[2018-03-18 06:33] LABS: GLUCOMETER DEV NAME(LOC) 5S 2P; GLUCOSE,POINT OF CARE 264 MG/DL (70-110)
[2018-03-18] MEDS: MORPHINE SULFATE 4 MG/ML SYRINGE IVP PRN ×3 (06:35→19:06)
[2018-03-18] MEDS: INSULIN LISPRO 100 UNITS/ML SQ PRN ×4 (06:36→20:48)
[2018-03-18 06:52] LABS: CALCIUM, TOTAL 8.3 mg/dL (8.8-10.5); MAGNESIUM 1.8 mg/dL (1.80-2.40); POTASSIUM 3.7 mmol/L (3.5-5.1); VANCOMYCIN,RANDOM 21.4 mcg/mL (25.0-50.0)
[2018-03-18 07:42] LABS: HEMOGLOBIN A1C 10.4 % (4.5-6.2)
[2018-03-18 07:51] VITALS: BP 128/61
[2018-03-18] MEDS ORDERED: 0.9% SODIUM CHLORIDE 5 ML NEB SOLUTION NEB ONE ×2 (07:58→13:56)
[2018-03-18] MEDS: ASPIRIN 81 MG EC TABLET PO SCH (08:04)
[2018-03-18] MEDS: CARVEDILOL 25 MG TABLET PO SCH ×2 (08:04→21:48)
[2018-03-18] MEDS: AmLODIPine BESYLATE 5 MG TABLET PO SCH (08:04)
[2018-03-18] MEDS: TICAGRELOR 90 MG TABLET PO SCH ×2 (08:04→21:47)
[2018-03-18] MEDS: ISOSORBIDE MONONITRATE 60 MG ER TABLET PO SCH (08:04)
[2018-03-18] MEDS: LACTOBACILLUS ACIDOPHILUS/BULGARICUS TABLET PO SCH (08:04)
[2018-03-18] MEDS: VANCOMYCIN HCL 1 GM/D5% WATER 200 ML IV SCH (08:04)
[2018-03-18] MEDS: RANOLAZINE 500 MG SR TABLET PO SCH ×2 (08:04→21:47)
[2018-03-18] MEDS: DOCUSATE SODIUM 100 MG CAPSULE PO SCH ×2 (08:04→21:48)
[2018-03-18] MEDS: ATORVASTATIN CALCIUM 40 MG TABLET PO SCH (08:04)
[2018-03-18] MEDS: PANTOPRAZOLE SODIUM 40 MG DR TABLET PO SCH (08:04)
[2018-03-18] MEDS: HEPARIN SODIUM,PORCINE 5,000 UNITS/ML VIAL SQ SCH ×2 (08:05→21:48)
[2018-03-18] MEDS ORDERED: INSULIN GLARGINE,HUM.REC.ANLOG 100 UNITS/ML SQ SCH (09:00)
[2018-03-18] MEDS: INSULIN GLARGINE,HUM.REC.ANLOG 100 UNITS/ML SQ SCH ×2 (09:00→20:49)
[2018-03-18] MEDS: ACETAMINOPHEN 325 MG TABLET PO PRN ×2 (11:46→23:52)
[2018-03-18 12:06] VITALS: BP 129/59
[2018-03-18 13:27] LABS: GLUCOMETER DEV NAME(LOC) 5S 1M; GLUCOSE,POINT OF CARE 348 MG/DL (70-110)
[2018-03-18 13:27] LABS: GLUCOMETER DEV NAME(LOC) 5S 1M; GLUCOSE,POINT OF CARE 310 MG/DL (70-110)
[2018-03-18 13:27] LABS: GLUCOMETER DEV NAME(LOC) 5S 2P; GLUCOSE,POINT OF CARE 377 MG/DL (70-110)
[2018-03-18 13:27] LABS: GLUCOMETER DEV NAME(LOC) 5S 1M; GLUCOSE,POINT OF CARE 422 MG/DL (70-110)
[2018-03-18] MEDS: SODIUM CHLORIDE 0.9% 1,000 ML IV SCH (13:59)
[2018-03-18 15:46] VITALS: BP 118/61
[2018-03-18 19:44] VITALS: BP 144/66
[2018-03-18] MEDS: CefTRIAXone SODIUM 1 GM in DEXTROSE 5%-WATER 10 ML IV SCH (20:10)
[2018-03-18] MEDS: VANCOMYCIN HCL 750 MG in DEXTROSE 5%-WATER 250 ML IV SCH (20:17)
[2018-03-18 23:38] VITALS: BP 140/60
[2018-03-19] MEDS: MORPHINE SULFATE 4 MG/ML SYRINGE IVP PRN ×3 (00:55→14:18)
[2018-03-19] MEDS: IPRATROPIUM BROMIDE 0.5 MG/2.5 ML NEB SOLUTION NEB SCH ×3 (02:44→13:27)
[2018-03-19 04:30] LABS: CREATININE,URINE RANDOM 106.9 mg/dL (30.0-125.0)
[2018-03-19 04:54] VITALS: BP 125/60
[2018-03-19] MEDS: ALBUTEROL SULFATE HFA 90 MCG/PUFF 8 GM INHALER IH SCH ×2 (05:52→11:36)
[2018-03-19] MEDS: INSULIN LISPRO 100 UNITS/ML SQ PRN ×2 (05:54→11:53)
[2018-03-19 06:28] LABS: BASOPHILS % (AUTO) 0.1 % (0.0-2.0); EOSINOPHILS % (AUTO) 4.3 % (1.0-6.0); HEMOGLOBIN 11.4 g/dL (13.5-17.5); LYMPHOCYTES # (AUTO) 1.8 K/uL (1.0-4.8); LYMPHOCYTES % (AUTO) 15.2 % (22.0-44.0); MEAN CORPUSCULAR HEMOGLOBIN 31.4 pg (26.0-34.0); MEAN CORPUSCULAR HGB CONC 34.5 G/dL (31.0-37.0); MEAN CORPUSCULAR VOLUME 91 fL (80-100); MONOCYTES # (AUTO) 1.4 K/uL (0.1-1.0); MONOCYTES % (AUTO) 11.3 % (2.0-9.0); NEUTROPHILS # (AUTO) 8.3 K/uL (1.8-7.7); NEUTROPHILS % (AUTO) 69.1 % (40.0-70.0); PLATELET COUNT (AUTO) 218 K/uL (150-450); RED BLOOD CELL COUNT(AUTO) 3.61 MIL/uL (4.50-5.90)
[2018-03-19 06:46] LABS: CALCIUM, TOTAL 8.4 mg/dL (8.8-10.5); CREATININE 2.12 mg/dL (0.60-1.30); POTASSIUM 4.1 mmol/L (3.5-5.1)
[2018-03-19] MEDS ORDERED: 0.9% SODIUM CHLORIDE 5 ML NEB SOLUTION NEB ONE ×2 (07:00→13:24)
[2018-03-19 07:35] VITALS: BP 146/66
[2018-03-19] MEDS: LACTOBACILLUS ACIDOPHILUS/BULGARICUS TABLET PO SCH (07:50)
[2018-03-19] MEDS: RANOLAZINE 500 MG SR TABLET PO SCH (07:50)
[2018-03-19] MEDS: TICAGRELOR 90 MG TABLET PO SCH (07:50)
[2018-03-19] MEDS: ATORVASTATIN CALCIUM 40 MG TABLET PO SCH (07:50)
[2018-03-19] MEDS: ISOSORBIDE MONONITRATE 60 MG ER TABLET PO SCH (07:50)
[2018-03-19] MEDS: DOCUSATE SODIUM 100 MG CAPSULE PO SCH (07:51)
[2018-03-19] MEDS: HEPARIN SODIUM,PORCINE 5,000 UNITS/ML VIAL SQ SCH (07:51)
[2018-03-19] MEDS: ASPIRIN 81 MG EC TABLET PO SCH (07:51)
[2018-03-19] MEDS: AmLODIPine BESYLATE 5 MG TABLET PO SCH (07:51)
[2018-03-19] MEDS: CARVEDILOL 25 MG TABLET PO SCH (07:51)
[2018-03-19] MEDS: PANTOPRAZOLE SODIUM 40 MG DR TABLET PO SCH (07:51)
[2018-03-19] MEDS: INSULIN GLARGINE,HUM.REC.ANLOG 100 UNITS/ML SQ SCH (07:55)
[2018-03-19] MEDS: VANCOMYCIN HCL 750 MG in DEXTROSE 5%-WATER 250 ML IV SCH (08:03)
[2018-03-19] MEDS: SODIUM CHLORIDE 0.9% 1,000 ML IV SCH (08:04)
[2018-03-19 08:52] LABS: GLUCOMETER DEV NAME(LOC) 5S 2P; GLUCOSE,POINT OF CARE 276 MG/DL (70-110)
[2018-03-19 11:45] VITALS: BP 104/73
[2018-03-19] MEDS ORDERED: CLINDAMYCIN HCL 300 MG CAPSULE PO SCH (11:45)
[2018-03-19] MEDS ORDERED: CLIN300C3 PO (14:45)
[2018-03-19] MEDS ORDERED: DSS100 PO (14:49)
[2018-03-19] MEDS ORDERED: HEPA500018 SQ (14:50)
[2018-03-19] MEDS ORDERED: INSLAN SQ (14:54)
[2018-03-19] MEDS ORDERED: IPRA3AMP4 NEB (14:55)
[2018-03-19] MEDS ORDERED: LACT1TAB11 PO (15:05)
[2018-03-19] MEDS ORDERED: PANT40TA25 PO (15:06)
[2018-03-19] MEDS ORDERED: ACET-2247 PO (15:08)
[2018-03-19] MEDS ORDERED: BISA10S PR (15:09)
[2018-03-19] MEDS ORDERED: INSU100V SQ (15:21)
[2018-03-19 15:36] VITALS: BP 140/61
[2018-03-19 16:13] LABS: GLUCOMETER DEV NAME(LOC) 5N 1P; GLUCOSE,POINT OF CARE 217 MG/DL (70-110)
[2018-03-19] MEDS ORDERED: INSULIN GLARGINE,HUM.REC.ANLOG 100 UNITS/ML SQ SCH (21:00)
[2018-03-20 23:24] LABS: GLUCOMETER DEV NAME(LOC) 5N 2S; GLUCOSE,POINT OF CARE 223 MG/DL (70-110)
[2018-03-20 23:24] LABS: GLUCOMETER DEV NAME(LOC) 5N 2S; GLUCOSE,POINT OF CARE 304 MG/DL (70-110)
[2018-03-20 23:24] LABS: GLUCOMETER DEV NAME(LOC) 5N 2S; GLUCOSE,POINT OF CARE 224 MG/DL (70-110)
== END 2018-03-19 17:40 | DRG 469 ==
LOC: EMS 14:11 → 5S 19:59
PROVIDERS: ADMIT Internal Medicine; ATTEND Internal Medicine
DX: N17.9 Acute kidney failure, unspecified (principal); E11.22 Type 2 diabetes mellitus with diabetic chronic kidney disease; L03.116 Cellulitis of left lower limb; I13.0 Hypertensive heart and chronic kidney disease with heart failure and stage 1 through stage 4 chronic kidney disease, or unspecified chronic kidney disease; I50.32 Chronic diastolic (congestive) heart failure; I27.20 Pulmonary hypertension, unspecified; N18.4 Chronic kidney disease, stage 4 (severe); K21.9 Gastro-esophageal reflux disease without esophagitis; E78.00 Pure hypercholesterolemia, unspecified; I25.2 Old myocardial infarction; E11.319 Type 2 diabetes mellitus with unspecified diabetic retinopathy without macular edema; E11.40 Type 2 diabetes mellitus with diabetic neuropathy, unspecified; E78.5 Hyperlipidemia, unspecified; J44.9 Chronic obstructive pulmonary disease, unspecified; D63.8 Anemia in other chronic diseases classified elsewhere; I25.10 Atherosclerotic heart disease of native coronary artery without angina pectoris; E11.65 Type 2 diabetes mellitus with hyperglycemia; Z95.5 Presence of coronary angioplasty implant and graft; Z79.82 Long term (current) use of aspirin; Z79.4 Long term (current) use of insulin; Z79.899 Other long term (current) drug therapy; Z83.3 Family history of diabetes mellitus; Z82.49 Family history of ischemic heart disease and other diseases of the circulatory system
CPT/HCPCS: 13122; 73700; 76770; 82570; 83036; 83605; 83735; 84100; 84145; 84156; 84300; 84540; 87040; 87081; 93005; 93306; 93971; 94640; 96365; 96368; 96375; 97163; 97165; 97530; 97535; 99285; J0696; J1170; J1644; J1815; J2270; J2405; J2543; J3370; J3535; J7030; J7050; J7060

== ENCOUNTER 2018-05-17 17:10 | Emergency (ER) | payer OTHER ==
[~2018-05-17] VITALS: Ht 167.6 cm; Wt 118.2 kg
[~2018-05-17 17:10] MED LIST changes: +ACET-2247 PO; +BISA10S PR; +CLIN300C3 PO; +DSS100 PO; -FURO40 PO; +HEPA500018 SQ; -INS7030 SQ; +INSLAN SQ; +INSU100V SQ; +IPRA3AMP23 NEB; -IPRNEB IH; +LACT1TAB11 PO; -LISI-662 PO; +PANT40TA25 PO; -SLOWK8 PO
[2018-05-17 17:29] LABS: GLUCOSE,POINT OF CARE 225 MG/DL (70-110)
[2018-05-17] MEDS ORDERED: PROPARACAINE HCL 0.5% 15 ML OPHTHALMIC SOLUTION OS ONE (19:45)
[2018-05-17 20:34] VITALS: BP 137/74
== END 2018-05-17 20:41 | disposition home or self-care (01) ==
LOC: EMS 17:11
DX: H54.62 Unqualified visual loss, left eye, normal vision right eye (principal); E11.65 Type 2 diabetes mellitus with hyperglycemia; I11.0 Hypertensive heart disease with heart failure; I50.9 Heart failure, unspecified; K21.9 Gastro-esophageal reflux disease without esophagitis; E11.9 Type 2 diabetes mellitus without complications; I25.2 Old myocardial infarction; E78.00 Pure hypercholesterolemia, unspecified; Z48.00 Encounter for change or removal of nonsurgical wound dressing; Z79.4 Long term (current) use of insulin
CPT/HCPCS: 99283